=== PATIENT | female | born 1980 | race Caucasian/White ===

== ENCOUNTER 2024-10-05 09:13 | Outpatient (CLI) | payer OTHER, SELFPAY ==
[2024-10-05 14:35] LABS: Basophils Percent Auto 0.5 % (0.2-1.2); Eosinophils Absolute Auto 0.1 K/mm3 (0-0.3); Eosinophils Percent Auto 1.1 % (0-4.4); Hematocrit 40.5 % (37.0-47.0); Hemoglobin 13.4 g/dL (12.0-15.0); Immature Granulocyte Absolute 0.05 K/mm3 (0.00-0.031); Immature Granulocyte Percent A 0.8 % (0-0.5); Lymphocytes Absolute Auto 1.87 K/mm3 (0.9-3.2); Lymphocytes Percent Auto 30.6 % (18.3-44.2); Mean Corpuscular HGB Conc 33.1 g/dl (32-36); Mean Corpuscular Hemoglobin 30.9 pg (26-34); Mean Corpuscular Volume 93.5 fl (80-100); Mean Platelet Volume 9.4 fl (7.4-10.4); Monocytes Absolute Auto 0.5 K/mm3 (0.1-0.6); Monocytes Percent Auto 8.3 % (2.6-8.5); Neutrophils Absolute Auto 3.6 K/mm3 (1.3-6.7); Neutrophils Percent Auto 58.7 % (45.5-73.1); Platelet Count Result 226 k/mm3 (150-375); Red Blood Count 4.33 M/mm3 (4.2-5.4); Red Cell Distribution Width 12.8 % (11.5-14.5); White Blood Count 6.1 K/mm3 (4.5-10.0)
[2024-10-05 14:39] LABS: Add Urine Microscopic? YES; Appearance Urine Clear (Clear); Bacteria Urine None Seen /hpf; Bilirubin Urine Negative (Negative); Blood Urine Trace (Negative); Color Urine Yellow (Yellow); Glucose Urine UA 1+ mg/dL (Negative); Ketones Urine 1+ mg/dL (Negative); Leukocyte Esterase Ur Negative LEU/UL (Negative); Nitrate Urine Negative (Negative); Non Pathogenic Casts 0-2; Protein Urine Negative (Negative); Specific Grav Ur 1.017 (1.001-1.035); Squamous Epithelial Cell Urine Few /hpf (Few); Urobilinogen Urine 0.2 mg/dL (<2.0); WBC Urine 0-5 /hpf (0-3); pH Urine 6.5 (5.0-9.0)
[2024-10-05 14:54] LABS: Vitamin D 25 Hydroxy 23.4 ng/mL
[2024-10-05 16:14] LABS: Alanine Aminotransferase 34 U/L (6-35); Albumin Level 4.2 g/dL (3.5-5.1); Alkaline Phosphatase 75 U/L (38-126); Anion Gap 5 mmol/L (4-12); Aspartate Amino Transferase 34 U/L (14-36); Bilirubin,Total 0.5 mg/dL (0.2-1.3); Blood Urea Nitrogen 11 mg/dL (7-17); Calcium 9.7 mg/dL (8.4-10.2); Carbon Dioxide 27 mmol/L (22-30); Chloride 104 mmol/L (98-107); Estimated Glomerular Filt Rate > 60; Glucose 159 mg/dL (65-110); Sodium 136 mmol/L (137-145)
[2024-10-05 16:19] LABS: Hemoglobin A1C 6.1 % (<5.7)
== END 2024-10-05 09:14 | disposition home or self-care (01) ==
LOC: ANHGOSHLAB 09:14
PROVIDERS: PCP Nurse Practitioner; Visit Provider Nurse Practitioner
DX: R42 Dizziness and giddiness (principal); E78.5 Hyperlipidemia, unspecified; F31.81 Bipolar II disorder
CPT/HCPCS: 36415; 80053; 81001; 82306; 83036; 84443; 85025

== ENCOUNTER 2025-01-27 13:36 | Emergency (ER) | payer OTHER, SELFPAY ==
[2025-01-27 13:46] VITALS: BP 124/75; PULSE 82; RESP 16; TEMP 36.6; O2SAT 100
--- NOTE | 2025-01-27 13:50 | ED_ITS ---
HPI - Skin/Abscess/Foreign Bdy General Chief complaint: Skin/Abscess/Foreign Body Stated complaint: Cyst Time Seen by Provider: 01/27/25 13:50 Source: patient Mode of arrival: ambulatory Limitations: no limitations History of Present Illness HPI narrative: 44 y/o female presented for complaint of an abscess to the right groin worsening over the past week. She states she has had a skin cyst to this site for 6 mon ths without any issues. Site became red and inflamed, she applied warm compresses to the site and last night it broke open and drained. She denies any other sites of abscesses. Not taking anything for symptoms. Related Data Home Medications ?Medication ?Instructions ?Recorded ?Confirmed ?Last Taken ?Type cetirizine 10 mg tablet (Zyrtec) 10 mg PO DAILY PRN 10/05/24 10/05/24 Unknown History divalproex 500 mg tablet,extended 500 mg PO BID 10/05/24 10/05/24 Unknown History release 24 hr (Depakote ER) fluoxetine 10 mg tablet 10 mg PO DAILY 10/05/24 10/05/24 Unknown History fluoxetine 20 mg tablet 20 mg PO DAILY 10/05/24 10/05/24 Unknown History folic acid 1 mg tablet 1 mg PO DAILY 10/05/24 10/05/24 Unknown History risperidone 0.25 mg tablet 0.25 mg PO BID 10/05/24 10/05/24 Unknown History fluoxetine 10 mg capsule mg 01/27/25 Unknown History fluoxetine 20 mg capsule mg 01/27/25 Unknown History quetiapine 50 mg tablet mg 01/27/25 Unknown History Allergies Allergy/AdvReac Type Severity Reaction Status Date / Time Sulfa (Sulfonamide Allergy Intermediate Rash Verified 01/27/25 13:45 Antibiotics) tramadol (From Ultram) Allergy Intermediate Rash Verified 01/27/25 13:45 Review of Systems Review of Systems: CONSTITUTIONAL: Denies body aches, fever, chills, or sweats. EYES: Denies visual changes, redness, or discharge. ENT: Denies rhinorrhea, congestion CARDIOVASCULAR: Denies chest pain, palpitations, or edema. RESPIRATORY: Denies cough or dyspnea. GASTROINTESTINAL: Denies abdominal pain, nausea, vomiting, or diarrhea. SKIN: per HPI MUSCULOSKELETAL: Denies back pain, joint pain, or myalgia. NEUROLOGIC: Denies headache, numbness, tingling, or weakness. [facility] Past Medical History Medical History (Updated 01/27/25 @ 14:16 by Alethea Bunch APRN) Bipolar 2 disorder Hyperlipemia Migraine Arthritis Anxiety Allergies Family History Family History (Updated 10/05/24 @ 08:[address] [facility]) Other Alcoholism Asthma Cancer Depression Diabetes mellitus Heart problem Hypertension Thyroid disorder Social History Social History (Updated 10/05/24 @ 08:[address] [facility]) Smoking status: Never smoker Second hand tobacco smoke exposure: Yes (As A Child) Alcohol intake: current Drinks per week: 3 Substance use: never Do You Feel Safe in your Home?: Yes Lack of Transportation: No Lack of Food: Never True Current Housing: I Have Housing Concerned About Future Housing: No Difficulty Paying Gas/Electric Bills: No Difficulty Paying for Meds: No Currently Unemployed: No Education: Master's Degree or Higher Difficulty w/ Childcare or Family Care: No Living arrangements: with family Occupation/Education: occupation Gender identity (if verbalized by the patient): Female Sexual Orientation (if Verbalized by the Patient): Straight or Heterosexual Comments At time of signature, I have reviewed and agree with nursing past medical, surgical, social and family history unless otherwise noted. Please see nursing chart for further information. There is no relevant family history pertinent to the presenting complaint Exam Narrative: GENERAL: Well-appearing EYES: conjunctivae clear, and EOMI. ENT: Mucous membranes moist. Oropharynx without edema, erythema or lesions. NECK: Supple. No lymphadenopathy CHEST: Clear to auscultation. HEART: Regular rate and rhythm. SKIN: Warm, dry. regarding abscess of 1 cm diameter with surrounding induration of 2 cm, extremely tender, scant purulent drainage. NEURO: Alert and oriented x3. Course Course Emergency Course: Patient is aware of diagnosis, understands and agrees to treatment plan. Anticipatory guidance given. Patient agrees to follow-up as directed and is aware of reasons to seek care at the emergency department. Portions of this record may have been created with voice recognition software Level of Care: Express Care Visit Vital Signs Vital signs: Vital Signs Temperature 97.8 F 01/27/25 13:46 Pulse Rate 82 01/27/25 13:46 Respiratory Rate 16 01/27/25 13:46 Blood Pressure 124/75 01/27/25 13:46 Pulse Oximetry 100 01/27/25 13:46 Temperature 97.8 F 01/27/25 13:46 Pulse Rate 82 01/27/25 13:46 Respiratory Rate 16 01/27/25 13:46 Blood Pressure 124/75 01/27/25 13:46 Pulse Oximetry 100 01/27/25 13:46 Reviewed MDM - Skin/Abscess/Foreign Bdy MDM Narrative Medical decision making narrative: Discussed physical exam findings; abscess right groin not amenable to I&D. wound culture collected. Shared decision making Rx abx; pt will continue warm compresses. Advised supportive measures and signs/symptoms to go to the ER. Pt is appropriate for outpt treatment and f/u. Differential Diagnosis Differential diagnosis: Likely abscess of skin or subcutaneous tissue, viral exanthem, dermatophytosis, urticaria, herpes zoster, cellulitis, eczema, insect bites, impetigo and contact dermatitis Discharge Plan Discharge Clinical Impression: Abscess of skin or subcutaneous tissue Qualifiers: Site of cutaneous abscess: trunk Site of cutaneous abscess of trunk: groin Qualified Code(s): L02.214 - Cutaneous abscess of groin Patient Disposition: Home Condition: Stable Instructions: Abscess (ED) Additional Instructions: You may shower and Cleanse with warm soapy water at least daily Warm compresses at least 4 times a day to the site to help expel any additional drainage. Keep your wound covered while draining Take antibiotic as directed Tylenol and ibuprofen every 8 hours for pain as needed Follow up with your primary care physician in 2-3 days for a wound check. Go to the Emergency Department immediately for any worsening symptoms or concerns Patient Language: Italian Prescriptions: New ibuprofen 800 mg tablet 800 mg PO TID PRN (Reason: pain) Qty: 15 0RF doxycycline hyclate 100 mg tablet 100 mg PO BID 7 Days Qty: 14 0RF No Action fluoxetine 10 mg capsule fluoxetine 20 mg capsule quetiapine 50 mg tablet fluoxetine 10 mg tablet 10 mg PO DAILY fluoxetine 20 mg tablet 20 mg PO DAILY folic acid 1 mg tablet 1 mg PO DAILY cetirizine [Zyrtec] 10 mg tablet 10 mg PO DAILY PRN risperidone 0.25 mg tablet 0.25 mg PO BID divalproex [Depakote ER] 500 mg tablet extended release 24 hr 500 mg PO BID meclizine 12.5 mg tablet 12.5 mg PO BID PRN (Reason: dizziness) Qty: 20 0RF cholecalciferol (vitamin D3) 1,250 mcg (50,000 unit) capsule 1,250 mcg PO WEEKLY Qty: 8 0RF atorvastatin 40 mg tablet 40 mg PO DAILY Qty: 90 1RF propranolol 60 mg capsule,extended release 24 hr 60 mg PO DAILY Qty: 90 1RF Follow-up/Referrals: PHYSICIAN,INTEGRATED LOGISTICS OPERATIONS MANAGER [Primary Care Provider] - Time of Disposition: 14:09
== END 2025-01-27 14:10 | disposition home or self-care (01) ==
PROVIDERS: Emergency Provider Nurse Practitioner Family
DX: L02.214 Cutaneous abscess of groin (principal); E78.5 Hyperlipidemia, unspecified; M19.90 Unspecified osteoarthritis, unspecified site; F41.9 Anxiety disorder, unspecified; F31.81 Bipolar II disorder
CPT/HCPCS: 87070; 87075; 87205; 99213; G0463

== ENCOUNTER 2025-02-01 14:27 | Emergency (ER) | payer OTHER, SELFPAY ==
[2025-02-01 14:37] VITALS: BP 130/82; PULSE 85; RESP 16; TEMP 36.8; O2SAT 98
--- NOTE | 2025-02-01 14:58 | ED.SKABFB ---
HPI - Skin/Abscess/Foreign Bdy General Chief complaint: Skin/Abscess/Foreign Body Stated complaint: Abscess Time Seen by Provider: 02/01/25 14:40 Source: patient Mode of arrival: ambulatory Limitations: no limitations History of Present Illness HPI narrative: Kobe is a 44-year-old female patient presenting to the clinic today with complaints of an abscess to the right groin. Patient was seen on January 27 2025 site clean. She reports her symptoms have been improving however she still has the abscess and is having some discomfort. Noticed some draining up until today. Is taking the doxycycline. Wound culture was obtained and positive for Prevotella bivia. Related Data Home Medications ?Medication ?Instructions ?Recorded ?Confirmed ?Last Taken ?Type cetirizine 10 mg tablet (Zyrtec) 10 mg PO DAILY PRN allergy symptoms 10/05/24 02/01/25 Unknown History divalproex 500 mg tablet,extended 500 mg PO BID 10/05/24 02/01/25 Unknown History release 24 hr (Depakote ER) fluoxetine 10 mg tablet 10 mg PO DAILY 10/05/24 02/01/25 Unknown History fluoxetine 20 mg tablet 20 mg PO DAILY 10/05/24 02/01/25 Unknown History folic acid 1 mg tablet 1 mg PO DAILY 10/05/24 02/01/25 Unknown History risperidone 0.25 mg tablet 0.25 mg PO BID 10/05/24 02/01/25 Unknown History fluoxetine 10 mg capsule 10 mg PO QPM 01/27/25 02/01/25 Unknown History fluoxetine 20 mg capsule 20 mg PO QPM 01/27/25 02/01/25 Unknown History quetiapine 50 mg tablet 50 mg PO DAILY 01/27/25 02/01/25 Unknown History Allergies Allergy/AdvReac Type Severity Reaction Status Date / Time Sulfa (Sulfonamide Allergy Intermediate Rash Verified 02/01/25 14:35 Antibiotics) tramadol (From Ultram) Allergy Intermediate Rash Verified 02/01/25 14:35 [facility] Past Medical History Medical History (Updated 02/01/25 @ 14:54 by Luis Henderson APRN) Bipolar 2 disorder Hyperlipemia Migraine Arthritis Anxiety Allergies Family History Family History Other Alcoholism Asthma Cancer Depression Diabetes mellitus Heart problem Hypertension Thyroid disorder Social History Social History Smoking status: Never smoker Second hand tobacco smoke exposure: Yes (As A Child) Alcohol intake: current Drinks per week: 3 Substance use: never Do You Feel Safe in your Home?: Yes Lack of Transportation: No Lack of Food: Never True Current Housing: I Have Housing Concerned About Future Housing: No Difficulty Paying Gas/Electric Bills: No Difficulty Paying for Meds: No Currently Unemployed: No Education: Master's Degree or Higher Difficulty w/ Childcare or Family Care: No Living arrangements: with family Occupation/Education: occupation Gender identity (if verbalized by the patient): Female Sexual Orientation (if Verbalized by the Patient): Straight or Heterosexual Comments At the time of my signature, I reviewed and agree with the nursing past medical, surgical, social, and family history. There is no relevant family history pertinent to the patient complaint. Exam Narrative: General: Well-developed, well nourished, in no apparent distress Head: Normocephalic, atraumatic. Cardio: Regular rate and rhythm, s1 and s2 normal, no murmur appreciated. Resp: Clear to auscultation bilaterally, no rhonchi, rales, wheezing or rubs. Integumentary: [place]ell[place], warm, and dry, intact without lesion, red, raised, mildly indurated to the right groin fold. Jinny (RT)at bedside. Course Course Emergency Course: Portions of this record may have been created with voice recognition software. Level of Care: Express Care Visit Vital Signs Vital signs: Vital Signs Temperature 36.8 C 02/01/25 14:37 Pulse Rate 85 02/01/25 14:37 Respiratory Rate 16 02/01/25 14:37 Blood Pressure 130/82 02/01/25 14:37 Pulse Oximetry 98 02/01/25 14:37 Temperature 36.8 C 02/01/25 14:37 Pulse Rate 85 02/01/25 14:37 Respiratory Rate 16 02/01/25 14:37 Blood Pressure 130/82 02/01/25 14:37 Pulse Oximetry 98 02/01/25 14:37 Vital signs reviewed MDM - Skin/Abscess/Foreign Bdy MDM Narrative Medical decision making narrative: At the time of visit patient is resting comfortably on the exam table. Patient appears to be nontoxic. Plan: Will place patient on clindamycin per culture report. Have patient stop taking the doxycycline.Supportive measures were discussed with the patient and they voiced understanding discharge instructions and agrees to treatment plan. Return precautions reviewed Differential Diagnosis Differential diagnosis: Likely abscess of skin or subcutaneous tissue, viral exanthem, dermatophytosis, urticaria, herpes zoster, allergic reaction to drug, cellulitis, eczema, insect bites, impetigo and contact dermatitis Discharge Plan Discharge Clinical Impression: Abscess of groin, right Patient Disposition: Home Condition: Stable Instructions: Antibiotic Form, Abscess (ED) Additional Instructions: Abscess culture came back positive for Prevotella bivia. Stop doxycycline and start taking clindamycin May continue warm moist compresses to the affected area or complete sitz bath 4 times daily May take Tylenol/ Motrin as needed for pain Increase fluids and stay well hydrated May take probiotic daily- take 2 hours before or after taking antibiotic does Follow-up with your PCP/solidworks designer in 3-5 days for wound check Patient Language: Sinhala Prescriptions: New clindamycin HCl [Cleocin HCl] 300 mg capsule 300 mg PO Q8H 10 Days Qty: 30 0RF No Action fluoxetine 10 mg capsule 10 mg PO QPM fluoxetine 20 mg capsule 20 mg PO QPM quetiapine 50 mg tablet 50 mg PO DAILY ibuprofen 800 mg tablet 800 mg PO TID PRN (Reason: pain) Qty: 15 0RF doxycycline hyclate 100 mg tablet 100 mg PO BID 7 Days Qty: 14 0RF fluoxetine 10 mg tablet 10 mg PO DAILY fluoxetine 20 mg tablet 20 mg PO DAILY folic acid 1 mg tablet 1 mg PO DAILY cetirizine [Zyrtec] 10 mg tablet 10 mg PO DAILY PRN (Reason: allergy symptoms) risperidone 0.25 mg tablet 0.25 mg PO BID divalproex [Depakote ER] 500 mg tablet extended release 24 hr 500 mg PO BID meclizine 12.5 mg tablet 12.5 mg PO BID PRN (Reason: dizziness) Qty: 20 0RF cholecalciferol (vitamin D3) 1,250 mcg (50,000 unit) capsule 1,250 mcg PO WEEKLY Qty: 8 0RF atorvastatin 40 mg tablet 40 mg PO DAILY Qty: 90 1RF propranolol 60 mg capsule,extended release 24 hr 60 mg PO DAILY Qty: 90 1RF Follow-up/Referrals: Bridgett Cruz, SMALL ORDER CUTTER [Primary Care Provider] - Time of Disposition: 14:54 Quality NIHSS Nursing Documentation ED NIHSS nursing documentation: reviewed/agree
== END 2025-02-01 15:00 | disposition home or self-care (01) ==
PROVIDERS: Emergency Provider Nurse Practitioner Family; PCP Nurse Practitioner
DX: L02.214 Cutaneous abscess of groin (principal); E78.5 Hyperlipidemia, unspecified; M19.90 Unspecified osteoarthritis, unspecified site; F41.9 Anxiety disorder, unspecified; F31.9 Bipolar disorder, unspecified
CPT/HCPCS: 99213; G0463

== ENCOUNTER 2025-04-19 11:07 | Outpatient (NON) | payer OTHER, SELFPAY ==
--- OUTSIDE RECORDS SUMMARY | 2025-04-19 11:10 | XMS_ITS | Clinical Summary ---
Author Organization [facility] Address [address] [place] [address] [place] [address] Care Team Providers Care Nailhead Setter Name Role Phone Unavailable Primary Care Provider Unavailabl e Source Comments [facility],non-owned Affiliates and Associated Physician Practices is amultiple site organization consisting of ambulatory clinics and hospital sitesin [place], [place], [place] and [place]. This disclosure is being madepursuant to the Care Everywhere program and may not contain all information available regarding this patient. Last updated 18.[facility] Allergies Active Allergy Reactions Criticality Noted Date Comments Sulfa Drugs Rash Medium 05/31/2024 Rash Tramadol Rash Medium 05/31/2024 Medications * Be aware that medications may not be up to date on this document. Alwaysverify current medications with the patient. QUEtiapine (SEROquel) 50 MG tablet Take 3 (three) tablets by mouth at bedtime Active FLUoxetine (PROzac) 20 MG capsule Take 1 (one) capsule by mouth once daily Active cetirizine (ZyrTEC) 10 MG tablet Take 1 (one) tablet by mouth once daily Active divalproex ER 24hr (Depakote ER) 500 MG tablet Take 1 (one) tablet by mouth 2 times daily Active risperiDONE (RisperDAL) 0.25 MG tablet Take 1 (one) tablet by mouth 2 times daily Active atorvastatin (Lipitor) 40 MG tablet Take 1 (one) tablet by mouth at bedtime 30 tablet 2 06/01/2024 Active propranolol ER 24hr (Inderal LA) 60 MG capsule Take 1 (one) capsule by mouth once daily 30 capsule 2 06/02/2024 Active Active Problems Problem Noted Date Diagnosed Date Numbness 05/31/2024 Dysarthria 05/31/2024 Facial droop 05/31/2024 Family History Medical History Relation Name Comments Cancer Other Relation Name Status Comments Other Social History Tobacco Use Types Packs/Day Years Used Date Smoking Tobacco: Never Assessed Comments Unknown Sex and Gender Information Value Date Recorded Sex Assigned at Not on file Legal Sex Female 6:04 AM DESILVERIZER Gender Identity Not on file Sexual Orientation Not on file Last Filed Vital Signs Vital Sign Reading Time Taken Comments Blood Pressure 126/82 06/01/2024 8:09 AM CDT Pulse 79 06/01/2024 8:09 AM CDT Temperature 36.8 C (98.2 F) 06/01/2024 8:09 AM CDT Respiratory Rate 18 06/01/2024 8:09 AM CDT Oxygen Saturation 98% 06/01/2024 8:09 AM CDT Inhaled Oxygen Concentration - - Weight 107 kg (235 lb 12.8 oz) 05/31/2024 2:10 P M CDT Height 175.3 cm (5' 9) 05/31/2024 2:10 PM CDT Body Mass Index 34.82 05/31/2024 2:10 PM CDT Plan of Treatment Health Maintenance Due Date Last Done Comments COLOGUARD (AGES 45-75) - COL ON CA SCREENING 1979 COLON MONITORING 1979 COLONOSCOPY - COLON CA SCREENING 1979 CT COLONOGRAPHY - COLON CA SCREENING 1979 Colorectal Cancer Screening 1979 FIT - COLON CA SCREENING 1979 FLEX SIG - COLON CA SCREENING 1979 MAMMOGRAM 1979 HIV SCREENING 12/23/1994 HEPATITIS C SCREENING 12/19/1997 DTAP/TDAP/TD VACCINES (1 - Tdap) 12/23/1998 HEPATITIS B VACCINE (1 of 3 - 19+ 3-dose series) 12/23/1998 PAP SMEAR 12/23/2000 HPV VACCINE (1 - 3-dose SCDM series) 12/23/2006 COVID-19 VACCINE ( - 2023-2 5 season) 2024 DEPRESSION SCREENING 10/03/2024 INFLUENZA VACCINE (#1) 2025 ZOSTER VACCINE (1 of 2) 12/23/2029 HIB VACCINE Aged Out No longer eligi ble based on patient's age to complete this topic MENINGOCOCCAL (Group B) VACC INE SHARED DECISION-MAKING Aged Out No longer eligibl e based on patient's age to complete this topic MENINGOCOCCAL GROUPS A/C/Y/W VACCINE Aged Out No longer eligible b ased on patient's age to complete this topic PNEUMOCOCCAL VACCINE Aged Out No long er eligible based on patient's age to complete this topic Insurance [facility] Advance Directives * Full Code (Latest Code Status on File) Date Activated Date Inactivated Comments 05/31/2024 12:32 PM 06/01/2024 10:30 AM
--- OUTSIDE RECORDS SUMMARY | 2025-04-19 11:10 | XMS_ITS | Encounter Summary ---
Author Organization [facility] Address [address] [place] [address] Care Team Providers Care Measurement Analyst Name Role Phone Unavailable Primary Care Provider Unavailabl e Encounter Details Date Type Department Care Team (Late st Contact Info) Description 04/16/2025 External Device Data [facility] Provider, Abstract NO ADDRESS ON FILE Social History Tobacco Use Types Packs/Day Years Used Date Smoking Tobacco: Never Assessed Comments Unknown Sex and Gender Information Value Date Recorded Sex Assigned at Not on file Legal Sex Female 2:38 PM STAFF RESEARCH ASSOCIATE Gender Identity Not on file Sexual Orientation Not on file documented as of this encounter Plan of Treatment Not on file documented as of this encounter Visit Diagnoses Not on filedocumented in this encounter
--- OUTSIDE RECORDS SUMMARY | 2025-04-19 11:10 | XMS_ITS | Clinical Summary ---
Author [facility] Address [address] [place] [address] Care Team Providers Care Bulk Sugar Handler Name Role Phone Unavailable Primary Care Provider Unavailabl e Medications divalproex (DEPAKOTE ER) 500 mg Extended Release 24 hour tablet Take 1 Tablet (500 mg) by mouth 2 times daily. 60 Tablet 3 04/21/2024 5:21 PM CDT 3 Active FLUoxetine (PROzac) 20 mg capsule Take 1 Capsule (20 mg) by mouth daily. 30 Capsule 2 05/01/2024 6:06 PM CDT 3 Active QUEtiapine (SEROquel) 50 mg tablet Take 1.5 Tablets (75 mg) by mouth daily at bedtime. 45 Tablet 2 3 Active FLUoxetine (PROzac) 20 mg capsule Take 1 Capsule (20 mg) by mouth daily. 30 Capsule 2 10/09/2023 1:19 PM PRESSURE WASHER 3 Active QUEtiapine (SEROquel) 50 mg tablet Take 1.5 Tablets (75 mg) by mouth daily at bedtime. 45 Tablet 2 11/29/2023 6:03 PM PRESSURE WASHER 3 Active QUEtiapine (SEROquel) 50 mg tablet Take 1.5 Tablets (75 mg) by mouth daily at bedtime. 45 Tablet 2 12/25/2023 3:37 PM CDT 4 Active QUEtiapine (SeroqueL) 50 mg tablet Take 1.5 Tablets (75 mg) by mouth daily at bedtime. 45 Tablet 2 4 Active QUEtiapine (SEROquel) 50 mg tablet Take 2 tablets by mouth at bedtime for 3 days, then take 2.5-3 tablets by mouth at bedtime 90 Tablet 2 05/22/2024 6:06 PM CDT 4 Active risperiDONE (RisperDAL) 0.25 mg Tablet Take 1 tablet by mouth twice daily 60 Tablet 3 4 Active risperiDONE (RisperDAL) 0.25 mg Tablet Take 1 Tablet (0.25 mg) by mouth 2 times daily. 60 Tablet 3 07/21/2024 3:03 PM CDT 4 Active FLUoxetine (PROzac) 10 mg capsule Take 1 Capsule (10 mg) by mouth daily. ( in addition to 20 mg dose) 90 Capsule 2 09/16/2024 1:50 PM PRESSURE WASHER 4 Active FLUoxetine (PROzac) 20 mg capsule Take 1 Capsule (20 mg) by mouth daily. 90 Capsule 2 09/16/2024 1:50 PM PRESSURE WASHER 4 Active QUEtiapine (SEROquel) 50 mg tablet Take 2 Tablets (100 mg) by mouth daily at bedtime. 180 Tablet 2 06/23/2024 4:51 PM CDT 4 Active atorvastatin (LIPITOR) 40 mg tablet Take 1 Tablet (40 mg) by mouth daily at bedtime. 30 Tablet 2 06/02/2024 11:54 AM CDT 4 Active propranoloL (INDERAL LA) 60 mg Long Acting 24 hour capsule Take 1 (one) capsule by mouth once daily 30 Capsule 2 06/02/2024 11:54 AM CDT 4 Active risperiDONE (RisperDAL) 0.25 mg Tablet Take 1 tablet by mouth twice daily 60 Tablet 3 09/24/2024 12:02 PM PRESSURE WASHER 4 Active folic acid (FOLVITE) 1 mg tablet Take 1 Tablet (1 mg) by mouth daily. 30 Tablet 2 10/01/2024 7:07 PM PRESSURE WASHER 4 Active divalproex (DEPAKOTE ER) 500 mg Extended Release 24 hour tablet Take 1 Tablet (500 mg) by mouth 2 times daily. 60 Tablet 3 10/01/2024 7:07 PM PRESSURE WASHER 4 Active atorvastatin (LIPITOR) 40 mg tablet Take one tablet (40 mg) orally daily 90 Tablet 1 10/05/2024 4:58 PM PRESSURE WASHER 5 Active meclizine (ANTIVERT) 12.5 mg tablet Take one tablet (12.5 mg) orally twice a day As Needed for dizziness 20 Tablet 10/05/2024 4:58 PM PRESSURE WASHER Active propranoloL (INDERAL LA) 60 mg Long Acting 24 hour capsule Take one capsule (60 mg) orally daily 90 Capsule 1 10/05/2024 4:58 PM PRESSURE WASHER Active cholecalciferol 1,250 mcg (50,000 unit) Capsule Take 1 Capsule (50,000 Units) by mouth every 7 days. 8 Capsule 10/14/2024 3:26 PM PRESSURE WASHER Active Encounters Date Type Department Care Team Description 04/16/2025 External Device Data [facility]STRACTION Provider, Abstract 03/19/2025 External Device Data [facility] ABSTRACTION Provider, Abstract 03/05/2025 External Device Data [facility] ABSTRACTION Provider, Abstract 02/21/2025 External Device Data [facility]CTION Provider, Abstract 02/20/2025 External Device Data [facility]CTION Provider, Abstract 02/19/2025 External Device Data [facility]STRACTION Provider, Abstract from Last 3 Months Social History Tobacco Use Types Packs/Day Years Used Date Smoking Tobacco: Never Assessed Comments Unknown Sex and Gender Information Value Date Recorded Sex Assigned at Not on file Legal Sex Female 2:38 PM PRESSURE WASHER Gender Identity Not on file Sexual Orientation Not on file Plan of Treatment Health Maintenance Due Date Last Done Comments DTAP/TDAP/TD VACCINES (1 - Tdap) 12/23/1998 HEPATITIS B VACCINES (1 of 3 - 19+ 3-dose series) 12/23/1998 HPV/Cotest (21-29) 12/23/2000 CERVICAL CANCER SCREENING 12/23/2009 HPV/Cotest (30-65) 12/23/2009 PAP SMEAR 12/23/2009 BREAST CANCER SCREENING 2019 COLORECTAL SCREENING 12/23/2024 Colorectal Cancer Screening 12/23/2024 FIT-DNA Q 3 years 12/23/2024 FIT/FOBT Q 1 year 12/23/2024 Flex Sig/CT Colonography Q 5 years 12/23/2024 INFLUENZA VACCINE (#1) 2025 HPV VACCINES Aged Out No longer eligi ble based on patient's age to complete this topic Insurance RX [employer] Commercial RX [employer] ([employer]) [facility] [employer]
[2025-04-19 18:13] LABS: Add Urine Microscopic? NO; Appearance Urine Clear (Clear); Glucose Urine UA Negative (Negative); Leukocyte Esterase Ur Negative LEU/UL (Negative); Nitrate Urine Negative (Negative); Specific Grav Ur 1.007 (1.001-1.035)
== END 2025-04-19 11:08 | disposition home or self-care (01) ==
LOC: ANHGOSHLAB 11:08
PROVIDERS: PCP Nurse Practitioner; Visit Provider Nurse Practitioner
DX: R39.9 Unspecified symptoms and signs involving the genitourinary system (principal)
CPT/HCPCS: 81003

== ENCOUNTER 2025-06-07 10:00 | Outpatient (RCR) | payer OTHER, SELFPAY ==
--- NOTE | 2025-05-01 16:17 | OPREHPOC ---
Outpatient Therapy Plan of Care This is a Multidisciplinary Plan of Care that may contain components documented by all disciplines (PT, OT, and ST.) PT Problem 1 PT Problem #1 Knowledge Deficit PT Goal 1 Goal / Goal Update 1. Patient will perform independent HEP Target Visit 2 PT Problem 2 PT Problem #2 Pain PT Goal 1 Goal / Goal Update 1. Tailbone pain with sitting 2/10 highest regardless of chair Target Visit 6 PT Problem 3 PT Problem #3 Impaired Strength PT Goal 1 Goal / Goal Update 1. Improve pelvic floor strength to 5/5 to reduce incontinence 2. Improve pelvic floor endurance to 10 seconds to reduce incontinence Target Visit 6 PT Problem 4 PT Problem #4 Impaired Functional ADLs PT Goal 1 Goal / Goal Update 1. Patient will report no urinary incontinence for 1 month 2. Patient will report no fecal incontinence for 1 month Target Visit 6
--- NOTE | 2025-05-01 16:17 | PTOPEVAL1 ---
Assessment and note entered by Mikala Moss DPT Evaluation Information Assessment Status Evaluation ICD-10 Condition Codes (PT) Weakness R53.1,Stress incontinence N39.3, Unspecified urinary incontinence R32 Subjective Information Pt reports stress incontinence and has noticed recently having some larger volumes. Has been occurring for several years and slowly worsening. Thinks she gets incontinence once a week, unsure specific cause but does seem to be if she waits too long to void. Voids 5 times a day and lately 1 time at night. Can hold urge to void up to an hour. Denies pain with urination. BM 1-3 times a day, fecal incontinence and reports a history of diarrhea and has been possibly been diagnosed with diarrhea. Fecal incontinence 2 times a week and is typically with activity. Wears liners with certain activities. Describes the volume as a smear. Fecal incontinence for several years as well. Also reports tailbone issues and has difficulty/pain sitting on certain chairs. Has been diagnosed with coccydynia. Highest pain recently 7/10 and lowest 0/10. Pt has never been . No [facility] history. Diet: drinks a lot of energy drinks and soda but is trying to work in more water. Takes a caffeine pill in the morning (100 mg). Eats 3 meals a day, usually cereal for breakfast, crackers and tuna salad for lunch with cheese, frozen dinners often. Pt is lactose intolerant. Patient goal: stop getting fecal incontinence with walking, decrease the tailbone pain, stop the stress incontinence as well. Return to [facility] is her annual appointment in October. Reported Pain Level Pain Score 0: Self Report Assessment PT Clinical Summary The patient is presenting to skilled therapy with a several year history of progressing urinary and fecal incontinence. She also reports a history of coccyx pain. She presents with decreased pelvic floor strength and endurance as well as overall decreased hip and abdominal strength. These impairments are contributing to her incontinence and she will benefit from skilled therapy to return to full function. Plan of Care Interventions Manual Therapy,Neuro Re-education,Patient/ Caregiver Education,Therapeutic Activities, Therapeutic Exercise PT Services Indicated Yes Treatment Frequency and 1 time a week for 6 visits Duration These treatments will address the objective and functional deficits as defined above. The patient will be advanced safely and appropriately in order for the patient to progress towards his/her prior level of function. Additional exercises will be introduced and as well as a comprehensive home exercise program upon discharge, if needed, ?to ensure carryover of functional gains achieved in the clinic. This treatment plan has been reviewed and agreement upon by the patient.
--- NOTE | 2025-06-14 15:18 | PCPTNOTE ---
Patient cancelled appointment 06/14/25. Unknown specifics.
--- NOTE | 2025-07-24 15:22 | PTOPDC ---
Assessment and note entered by Mikala Moss DPT Evaluation Information Assessment Status Discharge - Pt Not Present ICD-10 Condition Codes (PT) Weakness R53.1,Stress incontinence N39.3, Unspecified urinary incontinence R32 Subjective Information - Assessment PT Clinical Summary The patient has not attended therapy since 06/07/25. Her case will be discharged this date. Plan of Care PT Services Indicated No
== END 2025-07-24 16:47 | disposition home or self-care (01) ==
LOC: ANHPT 10:00
PROVIDERS: PCP Nurse Practitioner; Visit Provider Nurse Practitioner
DX: R32 Unspecified urinary incontinence (principal)
CPT/HCPCS: 97110; 97112; 97140; 97161; 97530

== ENCOUNTER 2025-07-03 09:56 | Emergency (ER) | payer OTHER, SELFPAY ==
--- NOTE | 2025-07-03 09:58 | ED.GENADULT ---
HPI - General Adult General Chief complaint: Upper Respiratory Infection Stated complaint: sore throat, cold symptoms Time Seen by Provider: 07/03/25 09:57 Source: patient Mode of arrival: ambulatory Limitations: no limitations History of Present Illness HPI narrative: Pt is a 44 y/o female presenting with c/o sore throat. Sore throat has been present for 20 days. Additional sx reported include postnasal drip. States it was initially associated with additional URI sx which have since resolved. Voices concern due to continued presence of sore throat. Denies any symptomatic treatment. Does admit to indigestion. No known exposure to COVID,FLU,STREP,PNA. reports negative at home covid/flu testing on Tuesday. States she has a dentist appt today and just want to make sure I can't give them whatever this is. No additional complaints. Related Data Home Medications ?Medication ?Instructions ?Recorded ?Confirmed ?Last Taken ?Type cetirizine 10 mg tablet (Zyrtec) 10 mg PO DAILY PRN allergy symptoms 10/05/24 02/01/25 Unknown History divalproex 500 mg tablet,extended 500 mg PO BID 10/05/24 02/01/25 Unknown History release 24 hr (Depakote ER) fluoxetine 10 mg tablet 10 mg PO DAILY 10/05/24 02/01/25 Unknown History folic acid 1 mg tablet 1 mg PO DAILY 10/05/24 02/01/25 Unknown History risperidone 0.25 mg tablet 0.25 mg PO BID 10/05/24 02/01/25 Unknown History fluoxetine 10 mg capsule 10 mg PO QPM 01/27/25 02/01/25 Unknown History fluoxetine 20 mg capsule 20 mg PO QPM 01/27/25 02/01/25 Unknown History quetiapine 50 mg tablet 50 mg PO DAILY 01/27/25 02/01/25 Unknown History hydroxyzine HCl 10 mg tablet mg 07/03/25 Unknown History Allergies Allergy/AdvReac Type Severity Reaction Status Date / Time Sulfa (Sulfonamide Allergy Intermediate Rash Verified 07/03/25 10:04 Antibiotics) tramadol (From Ultram) Allergy Intermediate Rash Verified 04/19/25 10:07 Review of Systems Review of Systems: CONSTITUTIONAL: Denies body aches, fever, chills, or sweats. EYES: Denies visual changes, redness, or discharge. ENT: Reports sore throat, Denies rhinorrhea, congestion, or otalgia. CARDIOVASCULAR: Denies chest pain, palpitations, or edema. RESPIRATORY: Denies cough or dyspnea. GASTROINTESTINAL: Denies abdominal pain, nausea, vomiting, or diarrhea. GENITOURINARY: Denies dysuria or hematuria. SKIN: Denies rash, itching, or wounds. MUSCULOSKELETAL: Denies back pain, joint pain, or myalgia. NEUROLOGIC: Denies headache, numbness, tingling, or weakness. PSYCH: Denies depression or anxiety. All systems reviewed & are unremarkable except as noted in HPI and below PMFSH Past Medical History Medical History Bipolar 2 disorder Hyperlipemia Migraine Arthritis Anxiety Allergies Family History Family History Other Alcoholism Asthma Cancer Depression Diabetes mellitus Heart problem Hypertension Thyroid disorder Social History Social History Smoking status: Never smoker Second hand tobacco smoke exposure: Yes (As A Child) Alcohol intake: current Drinks per week: 3 Substance use: never Do You Feel Safe in your Home?: Yes Lack of Transportation: No Lack of Food: Never True Current Housing: I Have Housing Concerned About Future Housing: No Difficulty Paying Gas/Electric Bills: No Difficulty Paying for Meds: No Currently Unemployed: No Education: Master's Degree or Higher Difficulty w/ Childcare or Family Care: No Living arrangements: with family Occupation/Education: occupation Gender identity (if verbalized by the patient): Female Sexual Orientation (if Verbalized by the Patient): Straight or Heterosexual Exam Narrative: GENERAL: Well-appearing, well-nourished, obese, and in no acute distress. HEAD: Normocephalic, atraumatic. EYES: EOMI. No redness or drainage. Conjunctivae normal. ENT: Mucous membranes pink and moist. Nares clear. No rhinorrhea. TMs normal bilaterally. Throat normal. Uvula midline. There is very mild erythema to posterior pharynx without ulceration, edema, exudate. NECK: Normal AROM. Supple. No lymphadenopathy. CHEST: No respiratory distress. Clear to auscultation. HEART: Regular rate and rhythm. No murmur appreciated. Normal peripheral pulses. MUSCULOSKELETAL: No bony tenderness. EXTREMITIES: Normal range of motion. No edema. SKIN: Warm, dry, no rash. Capillary refill normal. Normal skin turgor. NEURO: No focal deficits. Alert and oriented x3. Gait steady. PSYCH: Normal affect. No signs of depression or anxiety. Course Course Emergency Course: Negative strep, strep culture pending (do not anticipate this being positive), no symptomatic tx initiated, no known exposure to COVID/FLU/STREP/PNA, KNOWN hx of environmental allergies. Unremarkable physical exam. Noninfectious etiologies discussed, including allergies, GERD. I recommended symptomatic treatment. The patient was very condescending, laughing at my recommendations throughout the time I spent in the exam room--especially when I mentioned GERD as a common noninfectious cause of sore throat in adults further stating I don't have it often--laughing. I still recommended OTC antihistamine, flonase--told her if no improvement, then its worth trying an OTC medication like prilosec, diet changes. She then started laughing (again). I asked her what was funny and she said I just think it's funny how you panned your eyes downward when you mentioned diet. I made pt aware that if that did happen, it was not intentional as GERD is not specific to just those who are overweight. She made the encounter Very bizarre, uncomfortable. Level of Care: Express Care Visit Vital Signs Vital signs: Vital Signs Temperature 96.9 F L 07/03/25 10:05 Pulse Rate 85 07/03/25 10:05 Respiratory Rate 16 07/03/25 10:05 Blood Pressure 131/81 07/03/25 10:05 Pulse Oximetry 96 07/03/25 10:05 Temperature 96.9 F L 07/03/25 10:05 Pulse Rate 85 07/03/25 10:05 Respiratory Rate 16 07/03/25 10:05 Blood Pressure 131/81 07/03/25 10:05 Pulse Oximetry 96 07/03/25 10:05 Medical Decision Making MDM Narrative Medical decision making narrative: Discussed elevated blood pressure readings with patient and advised daily BP monitoring and f/u with PCP if persisting. Vital Signs Vital Signs: Vital Signs Temperature 96.9 F L 07/03/25 10:05 Pulse Rate 85 07/03/25 10:05 Respiratory Rate 16 07/03/25 10:05 Blood Pressure 131/81 07/03/25 10:05 Pulse Oximetry 96 07/03/25 10:05 Temperature 96.9 F L 07/03/25 10:05 Pulse Rate 85 07/03/25 10:05 Respiratory Rate 16 07/03/25 10:05 Blood Pressure 131/81 07/03/25 10:05 Pulse Oximetry 96 07/03/25 10:05 Lab Data Lab results reviewed: Yes I reviewed the patient's lab results. Labs: Lab Results 07/03/25 Range/Units 10:28 POC Grp A Strep Screen Negative (Negative) Discharge Plan Discharge Clinical Impression: Elevated blood pressure reading in office without diagnosis of hypertension Pharyngitis Qualifiers: Pharyngitis/tonsillitis etiology: unspecified etiology Qualified Code(s): J02.9 - Acute pharyngitis, unspecified Patient Disposition: Home Condition: Stable Instructions: Antibiotic Form, Pharyngitis (ED) Patient Language: Serbian Prescriptions: No Action fluoxetine 10 mg capsule 10 mg PO QPM fluoxetine 20 mg capsule 20 mg PO QPM quetiapine 50 mg tablet 50 mg PO DAILY hydroxyzine HCl 10 mg tablet fluoxetine 10 mg tablet 10 mg PO DAILY folic acid 1 mg tablet 1 mg PO DAILY cetirizine [Zyrtec] 10 mg tablet 10 mg PO DAILY PRN (Reason: allergy symptoms) risperidone 0.25 mg tablet 0.25 mg PO BID divalproex [Depakote ER] 500 mg tablet extended release 24 hr 500 mg PO BID cholecalciferol (vitamin D3) 1,250 mcg (50,000 unit) capsule 1,250 mcg PO WEEKLY Qty: 8 0RF atorvastatin 40 mg tablet 40 mg PO DAILY Qty: 90 1RF propranolol 60 mg capsule,extended release 24 hr 60 mg PO DAILY Qty: 90 1RF Follow-up/Referrals: Bridgett Cruz NP [Primary Care Provider, Internal Medicine] - 07/04/25 Time of Disposition: 10:35
[2025-07-03 10:05] VITALS: BP 131/81; PULSE 85; RESP 16; TEMP 36.1; O2SAT 96
[2025-07-03 10:30] LABS: EDSTREPNEGPOS1 Negative (Negative)
== END 2025-07-03 10:41 | disposition home or self-care (01) ==
PROVIDERS: Emergency Provider Registered Nurse; PCP Nurse Practitioner
DX: R03.0 Elevated blood-pressure reading, without diagnosis of hypertension (principal); J02.9 Acute pharyngitis, unspecified; E78.5 Hyperlipidemia, unspecified; M19.90 Unspecified osteoarthritis, unspecified site; F31.81 Bipolar II disorder; F41.9 Anxiety disorder, unspecified
CPT/HCPCS: 87081; 87880; 99213; G0463